=== PATIENT | female | born 1970 | race African-American/Black ===

== ENCOUNTER 2019-01-21 12:37 | Emergency (ER) | payer OTHER ==
[~2019-01-21] VITALS: Ht 157.5 cm; Wt 86.7 kg
[~2019-01-21 12:37] MED LIST: MECL-77 PO; ONDA4TAB14 PO
[2019-01-21 12:43] VITALS: BP 124/74; PULSE 68; RESP 17; Ht 157.5 cm; Wt 86.7 kg
[2019-01-21] MEDS ORDERED: ONDANSETRON (ODT) 4 MG TAB ODT STA (14:12)
[2019-01-21] MEDS ORDERED: MECLIZINE 12.5 MG TAB PO ONE (14:30)
== END 2019-01-21 15:30 | disposition home or self-care (01) ==
LOC: FTE 12:37
DX: R42 Dizziness and giddiness (principal)
CPT/HCPCS: 80053; 81003; 81025; 84484; 85025; 93005; Z7502; Z7610